=== PATIENT | male | born 1965 | race Caucasian/White ===

== ENCOUNTER 2016-09-07 14:15 | Emergency (ER) | payer BC, OTHER ==
[~2016-09-07] VITALS: Ht 170.2 cm; Wt 96.5 kg
[2016-09-07 15:00] VITALS: Ht 170.2 cm; Wt 96.5 kg
[2016-09-07] MEDS ORDERED: HYDROCODONE/APAP (10/325) TAB PO ONE (16:30)
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
[2016-09-07] MEDS ORDERED: HYDR-902 PO (17:13)
[2016-09-07] MEDS ORDERED: NAPR-260 PO (17:14)
[2016-09-07] MEDS ORDERED: CYCL-319 PO (17:14)
== END 2016-09-07 17:34 | disposition home or self-care (01) ==
LOC: FTE 14:15
DX: S29.001A Unspecified injury of muscle and tendon of front wall of thorax, initial encounter (principal); S39.92XA Unspecified injury of lower back, initial encounter; R07.89 Other chest pain; V49.40XA Driver injured in collision with unspecified motor vehicles in traffic accident, initial encounter
CPT/HCPCS: 71010; 72100